=== PATIENT | female | born 1970 | race Caucasian/White ===

== ENCOUNTER 2025-05-16 17:07 | Emergency (ER) | payer MEDICAID | END 2025-05-16 18:04 | disposition left against medical advice (07) | LOC: JP.ED 17:07 | DX: Z53.21 Procedure and treatment not carried out due to patient leaving prior to being seen by health care provider (principal) ==

== ENCOUNTER 2025-07-22 09:51 | Emergency (ER) | payer MEDICAID ==
[2025-07-22] MEDS: Ondansetron 4 MG Tab.DIS PO ONE (10:16)
[2025-07-22] MEDS: Ondansetron 4 MG/2 ML SDV IVPUSH ONE (10:16)
[2025-07-22 11:25] LABS: BASOPHILS ABSOLUTE AUTO 0.03 K/uL (0.00-0.10); BASOPHILS PERCENT AUTO 0.2 % (0.1-1.3); EOSINOPHILS ABSOLUTE AUTO 0.03 K/uL (0.00-0.40); EOSINOPHILS PERCENT AUTO 0.2 % (0.0-5.4); IMMATURE GRAN ABSOLUTE AUTO 0.04 K/uL (0.00-0.23); IMMATURE GRAN PERCENT AUTO 0.3 % (0.0-0.7); LYMPHOCYTES ABSOLUTE AUTO 1.17 K/uL (0.8-3.3); LYMPHOCYTES PERCENT AUTO 8.4 % (11.4-47.7); MONOCYTES ABSOLUTE AUTO 0.49 K/uL (0.20-0.90); MONOCYTES PERCENT AUTO 3.5 % (3.3-12.6); NEUTROPHILS ABSOLUTE AUTO 12.22 K/uL (1.0-7.6); NEUTROPHILS PERCENT AUTO 87.4 % (40.0-78.1); PLATELET COUNT,PLT 399 K/uL (130-375); RED BLOOD CELL COUNT 5.29 M/uL (3.77-5.24); WHITE BLOOD CELL COUNT,WBC 14.0 K/uL (3.2-11.0)
[2025-07-22 11:27] LABS: A/G RATIO 0.9 (1.2-2.2); ALANINE AMINOTRANSFERASE,ALT 32 U/L (12-78); BILIRUBIN TOTAL 0.7 mg/dL (0.2-1.0); BLOOD UREA NITROGEN,BUN 7 mg/dL (7-18); CARBON DIOXIDE,CO2 27 mmol/L (21-32); CHLORIDE,CL 105 mmol/L (100-108); CREATININE 0.8 mg/dL (0.6-1.0); ESTIMATED GFR 86 mL/min (>60); GLUCOSE RANDOM 105 mg/dL (74-106); POTASSIUM,K 4.3 mmol/L (3.6-5.2); PROTEIN TOTAL,TP 8.4 g/dL (6.4-8.2); SODIUM,NA 140 mmol/L (140-148); TSH ULTRASENSITIVE 2.397 uIU/mL (0.358-3.740)
[2025-07-22 11:29] LABS: ASPARTATE AMNIOTRANSFERASE,AST 21 U/L (15-37)
[2025-07-22] MEDS: Ketorolac 15 MG/ML SDV IVPUSH ONE (11:48)
== END 2025-07-22 13:46 | disposition home or self-care (01) ==
LOC: JP.ED 09:51
DX: R11.2 Nausea with vomiting, unspecified (principal); E86.0 Dehydration; E03.9 Hypothyroidism, unspecified; Z79.890 Hormone replacement therapy
CPT/HCPCS: 36415; 80053; 83735; 84443; 85025; 96361; 96374; 96375; 99284; J1885; J2405; J7030